=== PATIENT | female | born 1995 | race Hispanic/Latino ===

== ENCOUNTER 2018-09-10 06:51 | Day surgery (SDC) | payer MEDICAID ==
[~2018-09-10] VITALS: Ht 170.2 cm; Wt 136.1 kg
[~2018-09-10 06:51] MED LIST: OMEP20CA10 PO; SODIUM CHLORIDE 0.9% 1000ML 1,000 ML IV ONE; TRAM50TA4 PO
[2018-09-10] MEDS ORDERED: SODIUM CHLORIDE 0.9% 1000ML 1,000 ML IV ONE (06:59)
[2018-09-10 07:10] VITALS: BP 179/100
[2018-09-10] MEDS ORDERED: PROPOFOL 10 MG/ML 20ML VIAL IV ONE ×2 (07:23)
[2018-09-10 07:40] VITALS: BP 146/97
[2018-09-10 07:45] VITALS: BP 156/107
[2018-09-10 07:50] VITALS: BP 167/121
[2018-09-10 07:55] VITALS: BP 160/108
[2018-09-10 08:00] VITALS: BP 165/119
== END 2018-09-10 08:15 | disposition home or self-care (01) ==
LOC: DAH 06:51 → ENDO 06:51
PROVIDERS: ATTEND Internal Medicine
DX: K29.50 Unspecified chronic gastritis without bleeding (principal); K31.89 Other diseases of stomach and duodenum; K22.8 Other specified diseases of esophagus; F41.9 Anxiety disorder, unspecified; F32.9 Major depressive disorder, single episode, unspecified; B19.20 Unspecified viral hepatitis C without hepatic coma; Z79.899 Other long term (current) drug therapy; Z68.42 Body mass index [BMI] 45.0-49.9, adult
CPT/HCPCS: 43239; 81025; 88305; 88342; A4606; J2704 ×2; J7030 ×2